=== PATIENT | male | born 1985 | race American Indian/Alaskan Native ===

== ENCOUNTER 2020-06-25 09:04 | Emergency (ER) | payer SELFPAY ==
[2020-06-25 09:12] VITALS: BP 147/83
[2020-06-25] MEDS ORDERED: KETOROLAC 10 MG TAB PO ONE (09:36)
--- NOTE | 2020-06-25 09:36 | Emergency Department Report ---
ED Extremity Problem HPI - General Chief complaint: Extremity Injury, Lower Stated complaint: LEFT KNEE PAIN Time Seen by Provider: 06/25/20 09:16 Source: patient Mode of arrival: Ambulatory Limitations: No Limitations - History of Present Illness Initial comments: 34-year-old male with no significant past medical history presents to the ER today complaining of pain to his frontal left knee. Patient states that the pain started a couple days ago. 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 Reports mild swelling to the knee. He reports that the pain is worse with movement of the knee and with ambulation. He states that he tried Aleve without any relief of his pain. He denies similar symptoms in the past. He reports no other symptoms at this time. MD Complaint: other (Left knee pain) -: Gradual (Couple days ago.) - Related Data Previous Rx's Medication Instructions Recorded Last Taken Type Ketorolac [Toradol] 10 mg PO Q6H PRN #20 tablet 06/25/20 Unknown Rx predniSONE [Deltasone] 40 mg PO QDAY #10 tab 06/25/20 Unknown Rx Allergies Allergy/AdvReac Type Severity Reaction Status Date / Time No Known Allergies Allergy Unverified 06/25/20 09:07 ED Review of Systems ROS: Stated complaint: LEFT KNEE PAIN Other details as noted in HPI Comment: All other systems reviewed and negative Musculoskeletal: joint swelling, arthralgia ED Past Medical Hx - Past Medical History Previous Medical History?: No - Surgical History Past Surgical History?: No - Social History Smoking Status: Never Smoker Substance Use Type: Alcohol - Medications Home Medications: Home Medications Medication Instructions Recorded Confirmed Last Taken Type Ketorolac [Toradol] 10 mg PO Q6H PRN #20 tablet 06/25/20 Unknown Rx predniSONE [Deltasone] 40 mg PO QDAY #10 tab 06/25/20 Unknown Rx ED Physical Exam - General Limitations: No Limitations General appearance: alert, in no apparent distress - Respiratory Respiratory exam: Absent: respiratory distress - Cardiovascular Cardiovascular Exam: Present: regular rate - Extremities Exam Extremities exam: Present: normal inspection, other (Patient has tenderness to palpation to the medial aspect of the knee, and just adjacent to the patella tendon medially. He has increased pain of knee flexion and full extension of the knee otherwise range of motion is normal. No apparent swelling or effusion. No erythema or bruising noted.). Absent: calf tenderness - Neurological Exam Neurological exam: Present: alert, oriented X3, CN II-XII intact, abnormal gait (Mild limping gait but otherwise normal). Absent: motor sensory deficit ED Course Vital Signs 06/25/20 09:09 Temperature 98.0 F Pulse Rate 72 Respiratory 18 Rate Blood Pressure 147/83 O2 Sat by Pulse 97 Oximetry ED Medical Decision Making - Radiology Data Radiology results: report reviewed [facility] [address] [place] [address] XRay Report Signed Patient: ANDREW MAR MR#: [id number] : 1985 Acct:[id number] Age/Sex: 34 / M ADM Date: 06/25/20 Loc: ED Attending Dr: Ordering Physician: KAREN LOWERY Date of Service: 06/25/20 Procedure(s): XR knee 4+V LT Accession Number(s): [id number] cc: KAREN LOWERY Fluoro Time In Minutes: XR knee 4+V LT INDICATION: Left knee pain. COMPARISON: No relevant prior imaging study available. FINDINGS: No acute skeletal abnormality. No significant soft tissue abnormality. IMPRESSION: 1. No acute findings. Signer Name: Jacob Stevenson MD Signed: 06/25/2020 10:15 AM Workstation Name: [id number] Transcribed By: Dictated By: Jacob Stevenson MD Electronically Authenticated By: Jacob Stevenson MD Signed Date/Time: 06/25/20 1015 DD/ 1015 TD/TT: Critical care attestation.: If time is entered above; I have spent that time in minutes in the direct care of this critically ill patient, excluding procedure time. ED Disposition Clinical Impression: Sprain of knee Disposition: DC-01 TO HOME OR SELFCARE Is pt being admited?: No Does the pt Need Aspirin: No Condition: Stable Instructions: Knee Sprain, Adult Additional Instructions: Follow the rest, ice, compression and elevation protocol as given on your discharge instructions. Take the medication as prescribed. Continue using the knee compression wrap that you have been wearing as discussed. Use the crutches to help with ambulation. Follow-up with orthopedic doctor in 7 to 10 days if your symptoms persist. Return to the ER if your symptoms changes or worsens in any way. Prescriptions: predniSONE [Deltasone] 40 mg PO QDAY #10 tab Ketorolac [Toradol] 10 mg PO Q6H PRN #20 tablet PRN Reason: Pain Referrals: TJ CAPELLAN MD [Staff Physician] - 3-5 Days Forms: Work/School Release Form(ED) Time of Disposition: 10:34
--- NOTE | 2020-06-25 10:20 | XRay Report ---
XR knee 4+V LT INDICATION: Left knee pain. COMPARISON: No relevant prior imaging study available. FINDINGS: No acute skeletal abnormality. No significant soft tissue abnormality. IMPRESSION: 1. No acute findings. Signer Name: Jacob Stevenson MD Signed: 06/25/2020 10:15 AM Workstation Name: [id number]
== END 2020-06-25 10:59 | disposition home or self-care (01) ==
LOC: ED 09:04
DX: S83.92XA Sprain of unspecified site of left knee, initial encounter (principal); Z79.899 Other long term (current) drug therapy; X58.XXXA Exposure to other specified factors, initial encounter; Y93.89 Activity, other specified; Y92.89 Other specified places as the place of occurrence of the external cause; Y99.8 Other external cause status

== ENCOUNTER 2021-07-01 03:53 | Emergency (ER) | payer OTHER ==
[2021-07-01] MEDS ORDERED: ONDANSETRON 4 MG/2 ML INJ IV ONE (04:54)
[2021-07-01] MEDS ORDERED: MORPHINE 4 MG/1 ML INJ IV ONE ×2 (04:54→05:59)
[2021-07-01] MEDS ORDERED: SODIUM CHLORIDE 0.9% 1000 ML 1,000 ML IV ONE (04:54)
[2021-07-01] MEDS ORDERED: methylPREDNISolone Sod Succinate 40 MG/1 ML INJ IV ONE (05:01)
[2021-07-01] MEDS ORDERED: metroNIDAZOLE/NS 500 MG/100 ML 500 MG/100 ML BAG IV ONE (05:02)
--- NOTE | 2021-07-01 05:08 | Emergency Department Report ---
ED Abdominal Pain HPI - General Chief Complaint: Abdominal Pain Stated Complaint: COLITS FLARE UP PUI?: No Time Seen by Provider: 07/01/21 04:54 Source: patient Mode of arrival: Ambulatory Limitations: No Limitations - History of Present Illness Initial Comments: Chief complaint: "I have ulcerative colitis." HPI: This is a 35-year-old male with history of ulcerative colitis diagnosed 7 years ago presents with abdominal pain fever chills and diarrhea. He became ill at work at 6 PM. He has had nausea severe left-sided abdominal pain and significant diarrhea. Nonbloody diarrhea. Number stools "too many to count". He has not had a flare in several years. He does not have a GI specialist. He was diagnosed in [place]. No history of abdominal surgery. He has eaten a lot of greasy food lately. Normally diet controls his symptoms. MD Complaint: abdominal pain -: Gradual, Last night (6 PM) Location: LUQ, LLQ Migration to: no migration Severity scale (0 -10): 10 Quality: cramping, aching Consistency: constant Improves With: nothing Worsens With: nothing Associated Symptoms: nausea, diarrhea, fever, chills - Related Data Previous Rx's Medication Instructions Recorded Last Taken Type Ketorolac [Toradol] 10 mg PO Q6H PRN #20 tablet 06/25/20 Unknown Rx predniSONE [Deltasone] 40 mg PO QDAY #10 tab 06/25/20 Unknown Rx HYDROcodone/APAP 5-325 [[place] 1 each PO Q6HR PRN #10 tablet 07/01/21 Unknown Rx 5/325] Ondansetron [Zofran Odt] 4 mg PO Q8HR PRN #10 tab.rapdis 07/01/21 Unknown Rx Prednisone [predniSONE 10 mg 10 mg PO .TAPER #1 07/01/21 Unknown Rx (6-Day Pack, 21 Tabs)] levoFLOXacin [Levaquin TAB] 500 mg PO QDAY 7 Days #7 tablet 07/01/21 Unknown Rx metroNIDAZOLE [Flagyl TAB] 500 mg PO Q12HR 7 Days #14 tab 07/01/21 Unknown Rx Allergies Allergy/AdvReac Type Severity Reaction Status Date / Time No Known Allergies Allergy Unverified 06/25/20 09:07 ED Review of Systems ROS: Stated complaint: COLITS FLARE UP Other details as noted in HPI Comment: All other systems reviewed and negative Constitutional: chills, fever Respiratory: denies: cough, shortness of breath Cardiovascular: denies: chest pain Gastrointestinal: abdominal pain, nausea, diarrhea. denies: vomiting ED Past Medical Hx - Past Medical History Previous Medical History?: Yes Additional medical history: Ulcerative colitis - Surgical History Past Surgical History?: No - Social History Smoking Status: Never Smoker Substance Use Type: Alcohol - Medications Home Medications: Home Medications Medication Instructions Recorded Confirmed Last Taken Type Ketorolac [Toradol] 10 mg PO Q6H PRN #20 tablet 06/25/20 Unknown Rx predniSONE [Deltasone] 40 mg PO QDAY #10 tab 06/25/20 Unknown Rx HYDROcodone/APAP 5-325 [[place] 1 each PO Q6HR PRN #10 tablet 07/01/21 Unknown Rx 5/325] Ondansetron [Zofran Odt] 4 mg PO Q8HR PRN #10 tab.rapdis 07/01/21 Unknown Rx Prednisone [predniSONE 10 mg 10 mg PO .TAPER #1 07/01/21 Unknown Rx (6-Day Pack, 21 Tabs)] levoFLOXacin [Levaquin TAB] 500 mg PO QDAY 7 Days #7 tablet 07/01/21 Unknown Rx metroNIDAZOLE [Flagyl TAB] 500 mg PO Q12HR 7 Days #14 tab 07/01/21 Unknown Rx ED Physical Exam - General Limitations: No Limitations General appearance: alert, in no apparent distress - Head Head exam: Present: atraumatic, normocephalic - Eye Eye exam: Present: normal appearance - ENT ENT exam: Present: mucous membranes moist - Neck Neck exam: Present: normal inspection, full ROM - Respiratory Respiratory exam: Present: normal lung sounds bilaterally. Absent: respiratory distress, wheezes, rales, rhonchi - Cardiovascular Cardiovascular Exam: Present: regular rate, normal rhythm, normal heart sounds. Absent: systolic murmur, diastolic murmur, rubs, gallop - GI/Abdominal GI/Abdominal exam: Present: soft. Absent: distended, tenderness, guarding, r ebound - Rectal Rectal exam: Present: deferred - Extremities Exam Extremities exam: Present: normal inspection - Neurological Exam Neurological exam: Present: alert, oriented X3 - Psychiatric Psychiatric exam: Present: normal affect, normal mood - Skin Skin exam: Present: warm, dry, intact, normal color. Absent: rash ED Course Vital Signs 07/01/21 07/01/21 04:43 05:03 Temperature 100 F H Pulse Rate 89 79 Respiratory 16 18 Rate Blood Pressure 117/72 Blood Pressure 115/79 117/72 [Right] O2 Sat by Pulse 99 99 Oximetry ED Medical Decision Making - Lab Data Result diagrams: 07/01/21 05:01 07/01/21 05:01 Laboratory Results - last 24 hr 07/01/21 07/01/21 05:01 05:01 WBC 6.9 RBC 4.51 Hgb 14.1 Hct 39.8 MCV 88 MCH 31 MCHC 35 H RDW 13.4 Plt Count 311 Lymph % (Auto) 5.7 L [place] % (Auto) 6.3 Eos % (Auto) 0.1 Baso % (Auto) 0.2 Lymph # (Auto) 0.4 L [place] # (Auto) 0.4 Eos # (Auto) 0.0 Baso # (Auto) 0.0 Seg Neutrophils % 87.7 H Seg Neutrophils # 6.1 Sodium 138 Potassium 3.8 Chloride 102.1 Carbon Dioxide 20 L Anion Gap 20 BUN 10 Creatinine 1.0 Estimated GFR > 60 BUN/Creatinine Ratio 10 Glucose 112 H Calcium 8.1 L Total Bilirubin 2.50 H Direct Bilirubin 0.4 H Indirect Bilirubin 2.1 AST 22 ALT 18 Alkaline Phosphatase 69 Total Protein 7.3 Albumin 4.5 Albumin/Globulin Ratio 1.6 Lipase 17 - Radiology Data Radiology results: report reviewed Patient Name: ANDREW MAR Gender: Male Date of : 1985 Referring Provider: YANDEL LARA Organization: [facility] Accession Number: [id number] Requested Date: July 01, 2021 05:03 Report Status: Final Requested Procedure: 1 Procedure Description: XR abd series w cxr 1V Modality: XR Findings Reporting MD: Reyes Bhatia Dictation Time: July 01, 2021 04:37 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 TECHNIQUE: Flat and erect images of the abdomen with additional AP view of the chest. FINDINGS: Nonobstructive bowel gas pattern. No free air. No specific abnormality of the chest. IMPRESSION: 1. Nonobstructive bowel gas pattern. No acute findings within the chest. Signer Name: Reyes Bhatia II, MD - Medical Decision Making Ulcerative colitis flare with copious diarrhea and low-grade fever 100 F no peritonitis on exam. Treatment in emergency department included pain control with IV morphine, IV fluid resuscitation with normal saline bolus, IV ant ibiotics Levaquin and metronidazole. IV steroids. KUB ordered to rule out megacolon No obstruction no acute findings Abdominal series with chest radiograph. Normal white count. WBC 6000 with 1 dose of morphine pain is 5 out of 10. Prescribed prednisone taper, [place], Zofran, metronidazole and ciprofloxacin. Patient referred to primary care physician and GI specialist. Critical care attestation.: If time is entered above; I have spent that time in minutes in the direct care of this critically ill patient, excluding procedure time. ED Disposition Clinical Impression: Ulcerative colitis, acute Disposition: 01 HOME / SELF CARE / HOMELESS Is pt being admited?: No Does the pt Need Aspirin: No Condition: Stable Instructions: Ulcerative Colitis, Adult Prescriptions: metroNIDAZOLE [Flagyl TAB] 500 mg PO Q12HR 7 Days #14 tab levoFLOXacin [Levaquin TAB] 500 mg PO QDAY 7 Days #7 tablet HYDROcodone/APAP 5-325 [[place] 5/325] 1 each PO Q6HR PRN #10 tablet PRN Reason: Pain Prednisone [predniSONE 10 mg (6-Day Pack, 21 Tabs)] 10 mg PO .TAPER #1 Ondansetron [Zofran Odt] 4 mg PO Q8HR PRN #10 tab.rapdis PRN Reason: Nausea Referrals: AMI CLARKE MD [Staff Physician] - 3-5 Days ETHAN BARRON MD [Staff Physician] - 3-5 Days Forms: Work/School Release Form(ED)
[2021-07-01 05:22] LABS: Basophils % (Auto) 0.2 % (0.0-1.8); Eosinophils % (Auto) 0.1 % (0.0-4.3); Hematocrit 39.8 % (35.5-45.6); Hemoglobin 14.1 gm/dl (11.8-15.2); Lymphocytes # (Auto) 0.4 K/mm3 (1.2-5.4); Lymphocytes % (Auto) 5.7 % (13.4-35.0); Mean Corpuscular HGB Conc 35 % (32-34); Mean Corpuscular Volume 88 fl (84-94); Monocytes # (Auto) 0.4 K/mm3 (0.0-0.8); Monocytes % (Auto) 6.3 % (0.0-7.3); Platelet Count 311 K/mm3 (140-440); Red Blood Count 4.51 M/mm3 (3.65-5.03); Red Cell Distribution Width 13.4 % (13.2-15.2)
--- NOTE | 2021-07-01 05:41 | XRay Report ---
XR abd series w cxr 1V INDICATION / CLINICAL INFORMATION: fever colitis diarrhea COMPARISON: None available. TECHNIQUE: Flat and erect images of the abdomen with additional AP view of the chest. FINDINGS: Nonobstructive bowel gas pattern. No free air. No specific abnormality of the chest. IMPRESSION: 1. Nonobstructive bowel gas pattern. No acute findings within the chest. Signer Name: Reyes Bhatia II, MD Signed: 07/01/2021 5:37 AM Workstation Name: [id number]
[2021-07-01 05:45] LABS: Alanine Aminotransferase 18 units/L (7-56); Albumin 4.5 g/dL (3.9-5); BUN/Creatinine Ratio 10; Bilirubin,Direct 0.4 mg/dL (0-0.2); Blood Urea Nitrogen 10 mg/dL (9-20); Calcium 8.1 mg/dL (8.4-10.2); Hemolysis Index 3
[2021-07-01 06:03] VITALS: BP 119/68
--- NOTE | 2021-07-01 06:43 | Emergency Department Report ---
Blank Doc - Documentation Documentation: Patient was feeling better after medication. He was resting comfortably and s tated his pain was improving. He was discharged as written by Dr. Sosa.
== END 2021-07-01 07:47 | disposition home or self-care (01) ==
LOC: ED 03:53
DX: K51.90 Ulcerative colitis, unspecified, without complications (principal); Z79.899 Other long term (current) drug therapy
CPT/HCPCS: 36415; 74022; 80048; 80076; 83690; 85025; 96365; 96367; 96375; 96376; 99284; J1956; J2270; J2405; J2920; J7030; J7517; Q0162